=== PATIENT | male | born 1970 | race Caucasian/White ===

== ENCOUNTER 2019-03-18 04:30 | Emergency (ER) | payer OTHER ==
[~2019-03-18] VITALS: Ht 167.6 cm; Wt 109.1 kg
[2019-03-18 05:30] LABS: BASO # 0.1 10^3/uL (0.0-0.2); BASO % 0.7 % (0.0-1.0); EOS # 0.4 10^3/uL (0.0-0.50); EOS % 5.1 % (0.0-3.0); HEMATOCRIT 48.4 % (42.0-52.0); HEMOGLOBIN 16.9 g/dl (13.5-17.5); LYMPH # 2.6 10^3/uL (1.5-4.5); LYMPH % 37.6 % (24.0-44.0); MEAN CORPUSCULAR HEMOGLOBIN 30.6 pg (27.0-33.0); MEAN CORPUSCULAR HGB CONC 34.9 g/dl (32.0-36.5); MEAN CORPUSCULAR VOLUME 87.5 fl (80.0-96.0); MONO # 0.7 10^3/uL (0.0-0.8); MONO % 10.2 % (0.0-5.0); NEUTROPHILS # 3.1 10^3/uL (1.8-7.7); NEUTROPHILS % 45.7 % (36.0-66.0); PLATELET COUNT, AUTOMATED 152 10^3/uL (150-450); RED BLOOD COUNT 5.53 10^6/uL (4.30-6.10); WHITE BLOOD COUNT 6.9 10^3/uL (4.0-10.0)
[2019-03-18] MEDS ORDERED: ONDANSETRON 4MG/2ML VIAL (J2405) As Ordered ONE (05:34)
[2019-03-18] MEDS ORDERED: MORPHINE 4 MG/ML 1ML VIAL/SYRINGE (J2270) As Ordered ONE (05:34)
[2019-03-18] MEDS ORDERED: ONDANSETRON 4MG/2ML VIAL (J2405) IV ONE (05:45)
[2019-03-18] MEDS: MORPHINE 4 MG/ML 1ML VIAL/SYRINGE (J2270) IV PRN ×2 (05:46→06:39)
[2019-03-18 05:54] LABS: ALBUMIN 4.3 GM/DL (3.2-5.2); BILIRUBIN,DIRECT 0.1 MG/DL (0.0-0.2); BILIRUBIN,TOTAL 0.4 MG/DL (0.2-1.0); BLOOD UREA NITROGEN 20 MG/DL (7-18); CALCIUM LEVEL 9.2 MG/DL (8.5-10.1); CARBON DIOXIDE LEVEL 28 MEQ/L (21-32); CHLORIDE LEVEL 106 MEQ/L (98-107); CK-MB VALUE MASS 4.1 NG/ML (<3.6); CPK CREATINE PHOSPHOKINASE 202 U/L (39-308); CREATININE FOR GFR 1.13 MG/DL (0.70-1.30); GLOMERULAR FILTRATION RATE > 60.0 (>60); GLUCOSE, FASTING 116 MG/DL (70-100); MB/CK RELATIVE INDEX 2.03 (< OR =4); POTASSIUM SERUM 4.2 MEQ/L (3.5-5.1); SODIUM LEVEL 141 MEQ/L (136-145); TOTAL PROTEIN 7.8 GM/DL (6.4-8.2); TROPONIN I < 0.02 NG/ML (< 0.10)
[2019-03-18] MEDS ORDERED: KETOROLAC 30 MG/ML VIAL (J1885) IV ONE (07:45)
[2019-03-18 09:55] LABS: CK-MB VALUE MASS 3.6 NG/ML (<3.6); CPK CREATINE PHOSPHOKINASE 189 U/L (39-308); TROPONIN I < 0.02 NG/ML (< 0.10)
[2019-03-18] MEDS ORDERED: PROT1TAB2 PO (10:36)
[2019-03-18 11:03] VITALS: BP 161/95
--- NOTE | 2019-03-18 21:22 | ECGEPIP ---
[facility] - ED Test Date: 2019-03-18 Pat Name: KHUSHBU MANCUSO Department: Room: - Gender: Male [employer]: : 1970 Requested By: JESSICA Velázquez Order Number: [id number] Reading MD: Linh Kerr Measurements Intervals [place] Rate: 64 P: 12 NC: 157 QRS: 42 QRSD: 97 T: 25 QT: 425 QTc: 441 Interpretive Statements PROBABLE SINUS RHYTHM WITH SINUS ARRHYTHMIA baseline artifact may affect interpretation Electronically Signed on 03-18-2019 21:22:57 EDT by Linh Kerr
--- NOTE | 2019-03-18 21:25 | ECGEPIP ---
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
--- NOTE | 2019-03-19 07:52 | REP ---
Abdominal right upper quadrant ultrasound for right upper quadrant and epigastric pain: There are no comparisons. There are multiple small mobile gallbladder calculi along the dependent gallbladder wall. There is no gallbladder wall thickening or pericholecystic fluid. There is no intrahepatic or extrahepatic biliary duct dilatation. The common biliary duct measures 4.3 mm in diameter. There are multiple hepatic cysts. The largest in the right lobe measures up to 2.9 cm and the largest in the left lobe measures up to 3.0 cm. The hepatic parenchyma is otherwise homogeneous. The pancreas is obscured by bowel gas. The right kidney is normal size measuring 16.9 x 6.2 x 4.1 cm. There is a parapelvic right renal upper pole cyst measuring up to 1.5 cm. There is no right upper quadrant ascites. Impression: Cholelithiasis. There is no ultrasound evidence of acute cholecystitis or biliary duct dilatation. Left renal upper pole parapelvic cyst. The pancreas is obscured by bowel gas. Electronically Signed by Crow Aguilar MD 03/18/2019 08:20 A
--- NOTE | 2019-03-20 14:57 | REP ---
Portable chest, 08:15 a.m., single AP view with the patient sitting: Comparison is 06/03/2015. The lung king are clear. The cardiac size is normal. The rima, mediastinum, and skeletal structures are unremarkable. Impression: Negative portable chest. There is no interval change. Electronically Signed by Crow Aguilar MD 03/18/2019 07:29 A
== END 2019-03-18 11:02 | disposition home or self-care (01) ==
LOC: M ED 04:30
DX: R07.89 Other chest pain (principal); K21.9 Gastro-esophageal reflux disease without esophagitis; K80.00 Calculus of gallbladder with acute cholecystitis without obstruction; R00.1 Bradycardia, unspecified; N28.1 Cyst of kidney, acquired
CPT/HCPCS: 36415; 71045; 76705; 80048; 80076; 82150; 82550; 82553; 83605; 83690; 84484; 85025; 93005; 93041; 94760; 96374; 96375; 99285; J1885; J2270; J2405

== ENCOUNTER → 2019-03-29 | Outpatient (REF) | payer OTHER ==
[~2019-03-29] MED LIST: PROT1TAB2 PO
[2019-03-29 14:20] LABS: H PYLORI QUALITATIVE IgG NEGATIVE (NEGATIVE)
== END ==
LOC: M LAB REF 12:50
PROVIDERS: ATTEND Nurse Practitioner Adult Health
DX: R10.13 Epigastric pain (principal)

== ENCOUNTER 2019-05-10 12:27 | Day surgery (SDC) | payer OTHER ==
[~2019-05-10] VITALS: Ht 167.6 cm; Wt 111.6 kg
[~2019-05-10 12:27] MED LIST changes: +NS 1,000 ML IV ONE
[2019-05-10] MEDS ORDERED: fentaNYL 100 MCG/2 ML INJECTION (J3010) As Ordered ONE (13:54)
[2019-05-10] MEDS ORDERED: PROPOFOL 500 MG/50 ML VIAL As Ordered ONE (13:54)
[2019-05-10] MEDS ORDERED: LIDOCAINE 2% INJ 100 MG/5 ML SDV (FOR ANES.) As Ordered ONE (13:54)
--- NOTE | 2019-05-10 14:02 | ROOR ---
Patient Name: Alexandre Parks Procedure Date: 05/10/2019 1:30 PM Date of : 1970 Age: 48 Room: [facility] Gender: Male Note Status: Finalized Procedure: Upper GI endoscopy Indications: Epigastric abdominal pain Providers: Adebayo Parnell Jr, MD Referring MD: MAYTE MIRANDA JR, MD Requesting Provider: Medicines: Propofol per Anesthesia Complications: No immediate complications. Procedure: Pre-Anesthesia Assessment: - Prior to the procedure, a History and Physical was performed, and patient medications and allergies were reviewed. The patient is competent. The risks and benefits of the procedure and the sedation options and risks were discussed with the patient. All questions were answered and informed consent was obtained. Patient identification and proposed procedure were verified by the physician and the nurse in the pre-procedure area and in the procedure room. Mental Status Examination: alert and oriented. Airway Examination: normal oropharyngeal airway and neck mobility. Respiratory Examination: clear to auscultation. CV Examination: normal. ASA Grade Assessment: II - A patient with mild systemic disease. After reviewing the risks and benefits, the patient was deemed in satisfactory condition to undergo the procedure. The anesthesia plan was to use moderate sedation / analgesia (conscious sedation). Immediately prior to administration of medications, the patient was re-assessed for adequacy to receive sedatives. The heart rate, respiratory rate, oxygen saturations, blood pressure, adequacy of pulmonary ventilation, and response to care were monitored throughout the procedure. The physical status of the patient was re-assessed after the procedure. The Endoscope was introduced through the mouth, and advanced to the second part of duodenum. The upper GI endoscopy was accomplished without difficulty. The patient tolerated the procedure well. Findings: The upper third of the esophagus, middle third of the esophagus and lower third of the esophagus were normal. The cardia, gastric fundus, gastric body, gastric antrum, prepyloric region of the stomach and pylorus were normal. Biopsies were taken with a cold forceps for histology. The duodenal bulb, first portion of the duodenum and second portion of the duodenum were normal. Impression: - Normal upper third of esophagus, middle third of esophagus and lower third of esophagus. - Normal cardia, gastric fundus, gastric body, antrum, prepyloric region of the stomach and pylorus. Biopsied. - Normal duodenal bulb, first portion of the duodenum and second portion of the duodenum. Recommendation: - Discharge patient to home (ambulatory). - Return to my office as previously scheduled. Adebayo Parnell MD Adebayo Parnell Jr, MD 05/10/2019 2:01:41 PM Electronically signed by Adebayo Parnell Jr, MD Number of Addenda: 0 Note Initiated On: 05/10/2019 1:30 PM Estimated Blood Loss: Estimated blood loss: none.
[2019-05-10 14:28] VITALS: BP 129/75
== END 2019-05-10 14:30 | disposition home or self-care (01) ==
LOC: M OPP 12:27
PROVIDERS: ATTEND Surgery
DX: R10.13 Epigastric pain (principal); K21.9 Gastro-esophageal reflux disease without esophagitis; Z79.899 Other long term (current) drug therapy
CPT/HCPCS: 43239; 88305; J3010

== ENCOUNTER → 2020-09-25 | Outpatient (CLI) | payer SELFPAY ==
[~2020-09-25] MED LIST changes: -NS 1,000 ML IV ONE
== END ==
LOC: M LABSMTC 12:06
PROVIDERS: ATTEND Pediatrics
DX: Z20.822 Contact with and (suspected) exposure to COVID-19 (principal)

== ENCOUNTER → 2021-07-03 | Outpatient (CLI) | payer OTHER | LOC: M LABSMTC 10:38 | PROVIDERS: ATTEND Anesthesiology | DX: Z01.812 Encounter for preprocedural laboratory examination (principal); Z20.822 Contact with and (suspected) exposure to COVID-19 ==

== ENCOUNTER 2021-07-08 06:41 | Day surgery (SDC) | payer OTHER ==
[~2021-07-08] VITALS: Ht 167.6 cm; Wt 106.6 kg
[~2021-07-08 06:41] MED LIST changes: +NS 1,000 ML IV ONE
--- OUTSIDE RECORDS SUMMARY | 2021-07-08 06:45 | CCD ---
Author Author [facility] Organization [facility] Address Unknown Phone Unavailable Care Team Providers Care Refractory Worker Name Role Phone Anguiano, N Char Unavailable Anguiano, N Char Unavailable Anguiano, N Char Unavailable Anguiano, N Char Unavailable Anguiano, N Char Unavailable Anguaino, N Char Unavailable Anguiano, N Char Unavailable Anguiano, N Char Unavailable Anguiano, N Char Unavailable Anguiano, N Char Unavailable Anguiano, N Char Unavailable Anguiano, N Char Unavailable Anguiano, N Char Unavailable Anguiano, N Char Unavailable Anguiano, N Char Unavailable Anguiano, N Char Unavailable Anguiano, N Char Unavailable Anguiano, N Char Unavailable Anguiano, N Char Unavailable Anguiano, N Char Unavailable Anguiano, N Char Unavailable Anguiano, N Char Unavailable Anguiano, N Char Unavailable Anguiano, N Char Unavailable Anguiano, N Char Unavailable Anguiano, N Char Unavailable Anguiano, N Char Unavailable Anguiano, N Char Unavailable Anguiano, N Char Unavailable Anguiano, N Char Unavailable Anguiano, N Char Unavailable Anguiano, N Char Unavailable Anguiano, N Char Unavailable Anguiano, N Char Unavailable Anguiano, N Char Unavailable Anguiano, N Char Unavailable Anguiano, N Char Unavailable Anguiano, N Char Unavailable Anguiano, N Char Unavailable Anguiano, N Char Unavailable Anguiano, N Char Unavailable Puneet Aranda MD Unavailable Unavailable Rosi, Puneet Vinson MD Unavailable Unavailable Rosi, Puneet Vinson MD Unavailable Unavailable Rosi, Puneet Vinsno MD Unavailable Unavailable Rosi, Puneet Vinson MD Unavailable Unavailable Rosi, Puneet Vinson MD Unavailable Unavailable Rosi, Puneet Vinson MD Unavailable Unavailable Rosi, Puneet Vinson MD Unavailable Unavailable Rosi, Puneet Vinson MD Unavailable Unavailable Rosi, Puneet Vinson MD Unavailable Unavailable Rosi, Puneet Vinson MD Unavailable Unavailable Rosi, Puneet Vinson MD Unavailable Unavailable Rosi, Puneet Vinson MD Unavailable Unavailable Rosi, S Karel MD Unavailable Unavailable RosiPuneet MD Unavailable Unavailable Rosi S Karel DODSON Unavailable Unavailable Rosi S Karel DODSON Unavailable Unavailable Rosi, S Karel DODSON Unavailable Unavailable Rosi S Karel DODSON Unavailable Unavailable Rosi S Karel DODSON Unavailable Unavailable Rosi S Karel DODSON Unavailable Unavailable Rosi, S Karel DODSON Unavailable Unavailable Rosi, S Karel DODSON Unavailable Unavailable Rosi S Karel DODSON Unavailable Unavailable Rosi, S Karel DODSON Unavailable Unavailable Rosi, S Karel DODSON Unavailable Unavailable Rosi, S Karel DODSON Unavailable Unavailable Rosi, S Karel DODSON Unavailable Unavailable Rosi, S Karel DODSON Unavailable Unavailable Rosi, S Karel DODSON Unavailable Unavailable Rosi, S Karel DODSON Unavailable Unavailable Rosi, S Karel DODSON Unavailable Unavailable RosiPuneet MD Unavailable Unavailable Rosi, Puneet Vinson MD Unavailable Unavailable RosiPuneet galan MD Unavailable Unavailable RosiPuneet MD Unavailable Unavailable RosiPuneet MD Unavailable Unavailable RosiPuneet MD Unavailable Unavailable RosiPuneet galan MD Unavailable Unavailable RosiPuneet galan MD Unavailable Unavailable RosiPuneet galan MD Unavailable Unavailable RosiPuneet galan MD Unavailable Unavailable RosiPuneet galan MD Unavailable Unavailable RosiPuneet galan MD Unavailable Unavailable RosiPuneet galan MD Unavailable Unavailable Puneet Aranda MD Unavailable Unavailable Puneet Aranda MD Unavailable Unavailable RosiPuneet galan MD Unavailable Unavailable RosiPuneet galan MD Unavailable Unavailable RosiPuneet galan MD Unavailable Unavailable Puneet Aranda MD Unavailable Unavailable Groat, C Kimberley Unavailable Groat, C Kimberley Unavailable Groat, C Kimberley Unavailable Groat, C Kimberley Unavailable Groat, C Kimberley Unavailable Groat, C Kimberley Unavailable Groat, C Kimberley Unavailable Groat, C Kimberley Unavailable Groat, C Kimberley Unavailable Groat, C Kimberley Unavailable + Groat, Oj Chu Unavailable + Groat, Oj Chu Unavailable + Groat, C Kimberley Unavailable + Groat, Oj Chu Unavailable + Groat, Oj Chu Unavailable + Groat, C Kimberley Unavailable Miriam Bailey MD Unavailable Unavailable LynnMiriam MD Unavailable Unavailable LynnMiriam MD Unavailable Unavailable LynnMiriam MD Unavailable Unavailable LynnMiriam MD Unavailable Unavailable Scotland NeckMiriam MD Unavailable Unavailable Scotland NeckMiriam MD Unavailable Unavailable LynnMiriam MD Unavailable Unavailable [place] NeckMiriam MD Unavailable Unavailable LynnMiriam MD Unavailable Unavailable [place] NeckMiriam MD Unavailable Unavailable LynnMiriam MD Unavailable Unavailable LynnMiraim MD Unavailable Unavailable [place] NeckMiriam MD Unavailable Unavailable LynnMiriam jaramillo MD Unavailable Unavailable [place] NeckMiriam jaramillo MD Unavailable Unavailable [place] NeckMiriam jaramillo MD Unavailable Unavailable [place] NeckMiriam MD Unavailable Unavailable LynnMiriam MD Unavailable Unavailable [place] NeckMiriam MD Unavailable Unavailable LynnMiriam MD Unavailable Unavailable LynnMiriam jaramillo MD Unavailable Unavailable [place] NeckMiriam jaramillo MD Unavailable Unavailable LynnMiriam jaramillo MD Unavailable Unavailable LynnMiriam MD Unavailable Unavailable LynnMiriam jaramillo MD Unavailable Unavailable [place] NeckMiriam MD Unavailable Unavailable LynnMiriam MD Unavailable Unavailable [place] NeckMiriam jaramillo MD Unavailable Unavailable [place] NeckMiriam jaramillo MD Unavailable Unavailable LynnMiriam jaramillo MD Unavailable Unavailable LynnMiriam MD Unavailable Unavailable LynnMiriam MD Unavailable Unavailable LynnMiriam MD Unavailable Unavailable LynnMiriam MD Unavailable Unavailable [place] NeckMiriam MD Unavailable Unavailable [place] NeckMiriam MD Unavailable Unavailable [place] NeckMiriam MD Unavailable Unavailable [place] NeckMiriam MD Unavailable Unavailable LynnMiriam MD Unavailable Unavailable [place] NeckMiriam MD Unavailable Unavailable LynnMiriam MD Unavailable Unavailable [place] NeckMiriam MD Unavailable Unavailable [place] NeckMiriam MD Unavailable Unavailable LynnMiriam MD Unavailable Unavailable LynnMiriam MD Unavailable Unavailable [place] NeckMiriam MD Unavailable Unavailable LynnMiriam MD Unavailable Unavailable LynnMiriam MD Unavailable Unavailable [place] NeckMiriam MD Unavailable Unavailable LynnMiriam MD Unavailable Unavailable [place] NeckMiriam MD Unavailable Unavailable [place] NeckMiriam MD Unavailable Unavailable [place] NeckMiriam MD Unavailable Unavailable LynnMiriam MD Unavailable Unavailable [place] NeckMiriam MD Unavailable Unavailable [place] NeckMiriam MD Unavailable Unavailable [place] NeckMiriam MD Unavailable Unavailable LynnMiriam MD Unavailable Unavailable [place] NeckMiriam MD Unavailable Unavailable LynnMiriam MD Unavailable Unavailable [place] NeckMiriam MD Unavailable Unavailable [place] NeckMiriam MD Unavailable Unavailable LynnMiriam MD Unavailable Unavailable [place] NeckMiriam jaramillo MD Unavailable Unavailable [place] NeckMiriam MD Unavailable Unavailable LynnMiriam MD Unavailable Unavailable LynnMiriam jaramillo MD Unavailable Unavailable LynnMiriam MD Unavailable Unavailable LynnMiriam jaramillo MD Unavailable Unavailable [place] NeckMiriam jaramillo MD Unavailable Unavailable LynnMiriam jaramillo MD Unavailable Unavailable LynnMiriam jaramillo MD Unavailable Unavailable LynnMiriam jaramillo MD Unavailable Unavailable [place] NeckMiriam jaramillo MD Unavailable Unavailable LynnMiraim jaramillo MD Unavailable Unavailable [place] NeckMiriam jaramillo MD Unavailable Unavailable [place] NeckMiriam jaramillo MD Unavailable Unavailable [place] NeckMiriam jaramillo MD Unavailable Unavailable LynnMiriam jaramillo MD Unavailable Unavailable LynnMiriam jaramillo MD Unavailable Unavailable [place] NeckMiriam jaramillo MD Unavailable Unavailable [place] NeckMiriam jaramillo MD Unavailable Unavailable [place] NeckMiriam jaramillo MD Unavailable Unavailable [place] NeckMiriam jaramillo MD Unavailable Unavailable [place] NeckMiriam jaramillo MD Unavailable Unavailable Karlos Shafer MD Unavailable Unavailable Karlos Shafer MD Unavailable Unavailable Karlos Shafer MD Unavailable Unavailable Karlos Shafer MD Unavailable Unavailable Karlos Shafer MD Unavailable Unavailable Karlos Shafer MD Unavailable Unavailable Karlos Shafer MD Unavailable Unavailable Karlos Shafer MD Unavailable Unavailable Karlos Shafer MD Unavailable Unavailable Karlos Shafer MD Unavailable Unavailable Parker StripKarlos MD Unavailable Unavailable SoniKarlos MD Unavailable Unavailable Parker StripKarlos MD Unavailable Unavailable Parker StripKarlos MD Unavailable Unavailable Parker StripKarlos MD Unavailable Unavailable Parker StripKarlos MD Unavailable Unavailable SoniKarlos MD Unavailable Unavailable SoniKarlos MD Unavailable Unavailable SoniKarlos MD Unavailable Unavailable SoniKarlos MD Unavailable Unavailable SoniKarlos MD Unavailable Unavailable SoniKarlos MD Unavailable Unavailable SoniKarlos MD Unavailable Unavailable Parker StripKarlos MD Unavailable Unavailable Parker StripKarlos MD Unavailable Unavailable SoniKarlos MD Unavailable Unavailable SoniKarlos MD Unavailable Unavailable SoniKarlos MD Unavailable Unavailable Parker StripKarlos giron MD Unavailable Unavailable Parker StripKarlos MD Unavailable Unavailable SoniKarlos MD Unavailable Unavailable Parker StripKarlos MD Unavailable Unavailable Parker StripKarlos MD Unavailable Unavailable Parker StripKarlos giron MD Unavailable Unavailable SoniKarlos MD Unavailable Unavailable SoniKarlos MD Unavailable Unavailable Parker StripKarlos MD Unavailable Unavailable SoniKarlos MD Unavailable Unavailable Miriam Bailey MD Unavailable Unavailable Miriam Bailey MD Unavailable Unavailable Miriam Bailey MD Unavailable Unavailable Miriam Bailey MD Unavailable Unavailable Miriam Bailey MD Unavailable Unavailable Miriam Bailey MD Unavailable Unavailable Miriam Bailey MD Unavailable Unavailable Miriam Bailey MD Unavailable Unavailable Miriam Bailey MD Unavailable Unavailable Miriam Bailey MD Unavailable Unavailable Miriam Bailey MD Unavailable Unavailable Miriam Bailey MD Unavailable Unavailable Miriam Bailey MD Unavailable Unavailable Miriam Bailey MD Unavailable Unavailable Miriam Bailey MD Unavailable Unavailable Miriam Bailey MD Unavailable Unavailable Miriam Bailey MD Unavailable Unavailable Miriam Bailey MD Unavailable Unavailable Miriam Bailey MD Unavailable Unavailable Miriam Bailey MD Unavailable Unavailable Miriam Bailey MD Unavailable Unavailable Miriam Bailey MD Unavailable Unavailable Scotland NeckMiriam MD Unavailable Unavailable Scotland NeckMiriam MD Unavailable Unavailable Scotland NeckMiriam MD Unavailable Unavailable LynnMiriam MD Unavailable Unavailable LynnMiriam MD Unavailable Unavailable LynnMiriam MD Unavailable Unavailable LynnMiriam MD Unavailable Unavailable LynnMiriam MD Unavailable Unavailable Scotland NeckMiriam MD Unavailable Unavailable Scotland NeckMiriam MD Unavailable Unavailable Scotland NeckMiriam MD Unavailable Unavailable Scotland NeckMiriam MD Unavailable Unavailable Scotland NeckMiriam MD Unavailable Unavailable Scotland NeckMiriam MD Unavailable Unavailable Scotland NeckMiriam MD Unavailable Unavailable LynnMiriam MD Unavailable Unavailable LynnMiriam MD Unavailable Unavailable Scotland NeckMiriam MD Unavailable Unavailable LynnMiriam MD Unavailable Unavailable LynnMiriam MD Unavailable Unavailable Scotland NeckMiriam MD Unavailable Unavailable LynnMiriam MD Unavailable Unavailable Scotland NeckMiriam MD Unavailable Unavailable Scotland NeckMiriam MD Unavailable Unavailable Scotland NeckMiriam MD Unavailable Unavailable Scotland NeckMiriam MD Unavailable Unavailable Scotland NeckMiriam MD Unavailable Unavailable Scotland NeckMiriam MD Unavailable Unavailable LynnMiriam MD Unavailable Unavailable Scotland NeckMiriam MD Unavailable Unavailable LynnMiriam MD Unavailable Unavailable LynnMiriam MD Unavailable Unavailable LynnMiriam MD Unavailable Unavailable LynnMiriam MD Unavailable Unavailable Scotland NeckMiriam MD Unavailable Unavailable Scotland NeckMiriam MD Unavailable Unavailable Scotland NeckMiriam MD Unavailable Unavailable LynnMiriam MD Unavailable Unavailable Scotland NeckMiriam MD Unavailable Unavailable Scotland NeckMiriam MD Unavailable Unavailable LynnMiriam MD Unavailable Unavailable Scotland NeckMiriam MD Unavailable Unavailable LynnMiriam MD Unavailable Unavailable Scotland NeckMiriam MD Unavailable Unavailable Scotland NeckMiriam MD Unavailable Unavailable [place] NeckMiriam MD Unavailable Unavailable LynnMiriam MD Unavailable Unavailable LynnMiriam MD Unavailable Unavailable Scotland NeckMiriam MD Unavailable Unavailable LynnMiriam MD Unavailable Unavailable LynnMiriam MD Unavailable Unavailable Scotland NeckMiriam MD Unavailable Unavailable LynnMiriam MD Unavailable Unavailable LynnMiriam MD Unavailable Unavailable LynnMiriam MD Unavailable Unavailable LynnMiriam Unavailable Unavailable LynnMiriam MD Unavailable Unavailable Scotland NeckMiriam MD Unavailable Unavailable Scotland NeckMiriam MD Unavailable Unavailable Scotland NeckMriiam MD Unavailable Unavailable Scotland NeckMiriam MD Unavailable Unavailable Scotland NeckMiriam MD Unavailable Unavailable LynnMiriam MD Unavailable Unavailable Scotland NeckMiriam MD Unavailable Unavailable Re-disclosure Warning The records that you are about to access may contain information from federally-assisted alcohol or drug abuse programs. If such information is present, then the following federally mandated warning applies: This information has been disclosed to you from records protected by federal confidentiality rules (42 CFR part 2). The federal rules prohibit you from making any further disclosure of this information unless further disclosure is expressly permitted by the written consent of the person to whom it pertains or as otherwise permitted by 42 CFR part 2. A general authorization for the release of medical or other information is NOT sufficient for this purpose. The Federal rules restrict any use of the information to criminally investigate or prosecute any alcohol or drug abuse patient.The records that you are about to access may contain highly sensitive health information, the redisclosure of which is protected by Article 27-F of the [facility] Public Health law. If you continue you may have access to information: Regarding HIV / AIDS; Provided by facilities licensed or operated by the [facility] Office of Mental Health; or Provided by the [facility] Office for People With Developmental Disabilities. If such information is present, then the following [facility] mandated warning applies: This information has been disclosed to you from confidential records which are protected by state law. State law prohibits you from making any further disclosure of this information without the specific written consent of the person to whom it pertains, or as otherwise permitted by law. Any unauthorized further disclosure in violation of state law may result in a fine or alf sentence or both. A general authorization for the release of medical or other information is NOT sufficient authorization for further disc losure. Family History Family Member Name Family Member Gender Family Member Status Date o f Status Description Data Source(s) Unknown Unknown Problem [facility] ([facility]) Encounters Encounter Providers Location Date Indications Data Source(s ) Outpatient Attender: Karel Aranda MD Main Office 05/12/2021 02:00:00 PM EDT [facility] ([facility]) Outpatient Attender: Venancio Bailey Vandewall 0 03/04/2021 09:00:00 AM EDT [facility] ([facility] ) Outpatient Attender: Kendra Shafer MDReferrer: Venancio ricks MD 12/02/2020 10:06:30 PM EDT [facility] Outpatient Attender: Kendra Shafer MDReferrer: Venancio ricks MD 09/08/2020 12:57:38 PM EST [facility] Outpatient Attender: Kimberley Canasferrer: Venancio Bailey MD 08/08/2020 08:56:28 AM EST [facility] Recurring Patient Referrer: Venancio Bailey MD 08/07/2020 12:50:24 PM EST [facility] Recurring Patient Referrer: Venancio Bailey MD 05/15/2020 07:35:15 AM EDT [facility] Outpatient Attender: Char AnguianoReferrer: Venancio lopez MD 05/09/2020 05:50:42 PM EDT [facility] Medications Medication Brand Name Start Date Product Form Dose Route Admi nistrative Instructions Pharmacy Instructions Status Indications Reaction Description Data Source(s) Sutab Sutab 05/12/2021 12:00:00 AM EDT active [facility] ([facility]) Shingrix Shingrix 03/04/2021 12:00:00 AM EDT activ e [facility] ([facility]) Insurance Providers Payer name Policy type / Coverage type Policy ID Covered alliance party ID Covered alliance party's relationship to hall Policy Hall Plan Information [facility] [place] [id number] SP [id number] [facility] Claims DPT Commercial [id number] Self [id number] [facility] Claims DPT Commercial [id number] Self [id number] [facility] Claims DPT Commercial [id number] Self [id number] [facility] Claims DPT Commercial [id number] Self [id number] [facility] [id number] SELF [id number] [facility] U [id number] Se lf [id number] [facility] [id number] SELF [id number] [employer] [id number] SP [id number] SELF PAY ONLY [id number] SP [id number] [address] [place] [id number] SP [id number] [facility] Commercial [id number] Self [id number] [facility] Commercial [id number] Self [id number] [facility] Commercial [id number] Self [id number] [facility] Commercial [id number] Self [id number] [facility] O [id number] S [id number] Problems, Conditions, and Diagnoses Code Display Name Description Problem Type Effective Dates Data Source(s) 510015189 Screening for malignant neoplasm of colo n Screening for malignant neoplasm of colon Problem 05/12/2021 12:00:00 AM EDT [facility] ([facility]) Surgeries/Procedures Procedure Description Date Indications Data Source(s) OFFICE OUTPATIENT NEW 30 MINUTES 05/12/2021 12:00:00 A M EDT [facility] ([facility]) PERIODIC PREVENTIVE MED EST PATIENT 40-64YRS 12:00:00 AM EDT [facility] ([facility]) Results ID Date Data Source [id number] 03/04/2021 09:38:00 AM EDT [facility] ([facility]) Name Value Range Interpretation Code Description Data Brianna rce(s) Supporting Document(s) Cholesterol [Mass/volume] in Serum or Plasma 197 mg/dL 131-200 [facility] ([facility]) Cholesterol in LDL [Mass/volume] in Serum or Plasma by calcu lation 121 CALC 50-159 [facility] ([facility]) Triglyceride [Mass/volume] in Serum or Plasma 185 mg/dL 30-150 [facility] ([facility]) Cholesterol in HDL [Mass/volume] in Serum or Plasma 39 mg/dL 35-60 [facility] ([facility]) ID Date Data Source [id number] 03/04/2021 09:38:00 AM EDT [facility] ([facility]) Name Value Range Interpretation Code Description Data Brianna rce(s) Supporting Document(s) Glucose [Mass/volume] in Serum or Plasma 94 mg/dL 74-99 [facility] ([facility]) 100-125 mg/dL PRE-DIABETES/FASTING >126 mg/dL DIABETES/FASTING Urea nitrogen [Mass/volume] in Serum or Plasma 13 mg/dL 7-18 [facility] ([facility]) Creatinine 1.0 mg/dL 0.6-1.3 [facility] Sodium [Moles/volume] in Serum or Plasma 142 meq/L 136-145 [facility] ([facility]) Potassium [Moles/volume] in Serum or Plasma 4.4 meq/L 3.5-5.1 [facility] ([facility]) Chloride [Moles/volume] in Serum or Plasma 106 meq/L 98-107 [facility] ([facility]) Carbon dioxide, total [Moles/volume] in Serum or Plasma 27 meq/L 21 -32 [facility] ([facility]) Alkaline phosphatase isoenzyme [Units/volume] in Serum or Pl asma 80 mg/dL 46-116 [facility] ([facility]) Calcium [Mass/volume] in Serum or Plasma 9.2 mg/dL 8.5-10.1 [facility] ([facility]) Total Bilirubin 0.6 mg/dL 0.2-1.0 [facility] ([facility]) Aspartate aminotransferase [Enzymatic activity/volume] in Serum or Plasma 23 U/L 15-37 [facility] Proteinase 3 Ab [Units/volume] in Serum 6.8 g/dL 6.4-8.2 [facility] Albumin [Mass/volume] in Serum or Plasma 4.1 g/dL 3.4-5.0 [facility] Alanine aminotransferase [Enzymatic activity/volume] in Seru m or Plasma 55 U/L 12-78 [facility]) A/G Ratio 1.52 CALC 1.00-1.90 [facility]) Glomerular filtration rate/1.73 sq M pre dicted among non-blacks [Volume Rate/Area] in Serum or Plasma by Creatinine-based formula (MDRD) Laboratory test result [facility] Glomerular filtration rate/1.73 sq M pre dicted among blacks [Volume Rate/Area] in Serum or Plasma by Creatinine-based formula (MDRD) Laboratory test result [facility] ([facility]) <content>CHRONIC KIDNEY DISEASE STAGING PER NKF</content>
<content></content>
<content>STAGE I & II GFR >= 60 NORMAL TO MILDLY DECREASED</content>
<content>STAGE III GFR 30-59 MODERATELY DECREASED</content>
<content>STAGE IV GFR 15-29 SEVERELY DECREASED</content>
<content>STAGE V GFR <15 VERY LITTLE GFR LEFT</content>
<content>ESRD GFR <15 ON POWER SWITCHBOARD OPERATOR</content>
<content></content> ID Date Data Source [id number] 03/04/2021 09:38:00 AM EDT [facility] Name Value Range Interpretation Code Description Data Brianna rce(s) Supporting Document(s) Prostate specific Ag [Mass/volume] in Serum or Plasma 1.17 ng/mL [facility]) This assay was performed on the Siemens Dimension EXL using the B- Galactosidase/CPRG methodology and should not be compared interchangeably with other methods. The PSA should not be used alone as a screening test for the presence or absence of malignant disease. ID Date Data Source [id number] 03/04/2021 09:38:00 AM EDT [facility] ([facility]) Name Value Range Interpretation Code Description Data Brianna rce(s) Supporting Document(s) Erythrocytes [#/volume] in Blood by Automated count 5.33 x10*6/UL 4.2 0-6.30 [facility] ([facility]) Hemoglobin [Mass/volume] in Blood 15.7 g/dL 12.0-18.0 [facility] ([facility]) Leukocytes [#/volume] in Blood by Automated count 5.3 x10*3/UL 4.1-10 .9 [facility] ([facility]) Hematocrit [Volume Fraction] of Blood by Automated count 46.7 % 3 7.0-51.0 [facility] ([facility]) MCV 87.7 fL 80.0-97.0 [facility] ([facility]) MCH 29.5 pg 26.0-32.0 [facility] ([facility]) MCHC 33.6 g/dL 31.0-38.0 [facility] ([facility]) Erythrocyte distribution width [Ratio] by Automated count 13.0 % 11.6-13.7 [facility] ([facility]) Platelets [#/volume] in Blood by Automated count 150 x10*3/UL 140-440 [facility] ([facility]) MPV 9.1 FL 7.8-11.0 [facility] ([facility]) Lymph % 36.1 % 10.0-58.5 [facility] ([facility]) Neut % 56.5 % 37.0-92.0 [facility] ([facility]) Mid % 7.4 % 1.7-9.3 [facility] ([facility]) Mid # 0.4 x10*3/UL 0.1-0.6 [facility] ([facility]) Lymph # 1.9 x10*3/UL 0.6-4.1 [facility] ([facility]) Neut # 3.0 x10*3/UL 2.0-7.8 [facility] ([facility]) ID Date Data Source [id number] 12/02/2020 10:06:30 PM EDT [facility] PCName: Khushbu ParksB: 1970Provider: Nemo ShaferGiselle: 11/28/2020 Reason For VisitDomiquel Parks is here today for Right wrist. Khushbu Parks is an established patient here for follow up and Khushbu Parks is here for first post-op appointment. Other DOI/DOO: 6 Months NKI. Surgery DOS: 08/26/2020 RECTR. 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 History of Present Illness The patient's post-surgical course has been without complication. Rehabilitation is progressing normally. The patient denies increased pain, increased swelling, fever, chills or purulent drainage. He is here for follow-up of a chronic problem with his left hand and wrist. He is status post endoscopic carpal tunnel release. The date of surgery was 11/18/2020. He is doing well. He reports no more numbness or tingling. He did have the right side done previously. AssessmentLeft carpal tunnel syndrome, status post endoscopic carpal tunnel release PlanPlan, Assessment and Recommendation(s) Follow up as needed, if not improving, or getting worse. He is doing well. He has been instructed in scar massage and range of motion exercises. He will do no lifting or weightbearing for 2 weeks. Work / School NoteThe percentage of temporary impairment is 0%. DisclaimersThis document was dictated and electronically signed using [employer] software. A reasonable attempt at proof reading has been made to minimize errors. Please call with any questions. Signatures Electronically signed by : Kendra Shafer NP; Nov 28 2020 2:28PM EST (Author) Electronically signed by : Char Anguiano M.D.; Dec 02 2020 10:06PM EST Name Value Range Interpretation Code Description Data Brianna rce(s) Supporting Document(s) ID Date Data Source [id number] 11/13/2020 03:13:00 PM EDT [facility] Name Value Range Interpretation Code Description Data Brianna rce(s) Supporting Document(s) SARS coronavirus 2 RNA [Presence] in Res piratory specimen by JOSE with probe detection Negative [facility] This lab was ordered by [facility] and reported by [facility]. ID Date Data Source [id number] 09/25/2020 12:00:00 AM EST [facility] Name Value Range Interpretation Code Description Data Brianna rce(s) Supporting Document(s) SARS-CoV-2 (COVID-19) RNA [Presence] in Respiratory specimen by JOSE with probe detection Not Detected [facility] This lab was ordered by [facility] and reported by [facility]. ID Date Data Source [id number] 09/08/2020 12:57:38 PM EST [facility] PCName: Khushbu ParksDOB: 1970Provider: Soni, IngridPuneet: 09/05/2020 Reason For VisitDomiquel Parks is here today for Right wrist. Khushbu Parks is an established patient here for follow up and Khushbu Parks is here for first post-op appointment. Other DOI/DOO: 6 Months NKI. Surgery DOS: 08/26/2020. 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 History of Present IllnessThe patient's post-surgical course has been without complication. Rehabilitation is progressing normally. The patient denies increased pain, increased swelling, fever, chills or purulent drainage. He is here for follow-up of his right hand and wrist. He is status post endoscopic carpal tunnel release. The date of surgery was 08/26/2020. He is doing well. He reports no more numbness or tingling. AssessmentBilateral carpal tunnel syndrome, status post right endoscopic carpal tunnel release PlanPlan, Assessment and Recommendation(s) Follow up as needed, if not improving, or getting worse. He is doing well. He has been instructed in scar massage and range of motion exercises. He will do no lifting or weightbearing for 2 weeks. He does have carpal tunnel syndrome on the left side. He states that it is not bothering him as much as the right was. He is planning on doing the left side, most likely in the spring. He will follow-up with us as needed. Work / School NoteThe percentage of temporary impairment is 0%. DisclaimersThis document was dictated and electronically signed using [employer] software. A reasonable attempt at proof reading has been made to minimize errors. Please call with any questions. Signatures Electronically signed by : Kendra Shafer NP; Sep 05 2020 1:34PM EST (Author) Electronically signed by : Char Anguiano M.D.; Sep 08 2020 12:57PM EST Name Value Range Interpretation Code Description Data Brianna rce(s) Supporting Document(s) ID Date Data Source [id number] 08/21/2020 04:23:00 PM EST [facility] Name Value Range Interpretation Code Description Data Brianna rce(s) Supporting Document(s) SARS coronavirus 2 RNA [Presence] in Res piratory specimen by JOSE with probe detection [facility] This lab was ordered by [facility] and reported by [facility]. ID Date Data Source [id number] 08/08/2020 08:56:28 AM EST [facility] PCName: Khushbu ParksDOB: 1970Provider: Analia Zuluaga: 08/07/2020 Reason For VisitDomiquel Parks is here today for Right wrist. Khushbu Parks is an established patient here for follow up. 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 History of Present IllnessThis is a pleasant 49-year-old male who returns for evaluation of bilateral hand numbness and tingling, more pronounced on the right as compared to the left. He is now considering proceeding with a right endoscopic carpal tunnel release in order to alleviate his symptoms of numbness, tingling and pain. AssessmentSOS Assessment Dragon Form: Bilateral carpal tunnel syndrome PlanThis patient has symptoms from bilateral carpal tunnel syndrome, more pronounced on the right as compared to the left. He is given treatment options. He would like to proceed with a right endoscopic carpal tunnel release in order to alleviate symptoms of numbness, tingling and pain. The nature of the proposed surgical procedure, including risks, benefits and expected postoperative course was reviewed. Risks include but are not limited to: pain, stiffness, infection, bleeding, numbness or weakness and swelling. Alternatives to surgery, including other procedures or no procedures were discussed. The need for additional surgery was discussed. Questions were reviewed. There seems to be a good understanding of the indicated surgical procedure in the office today. 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 Signatures Electronically signed by : Kevin Sanz; Aug 07 2020 2:06PM EST (Author) Electronically signed by : Char Anguiano M.D.; Aug 08 2020 8:56AM EST Name Value Range Interpretation Code Description Data Brianna rce(s) Supporting Document(s) Procedure Social History No Information Vital Signs ID Date Data Source UNK Name Value Range Interpretation Code Description Data Source(s) Body height 66 [in_i] 66 [in_i] [facility] ([facility]) 5'6" Body weight 245.00 [lb_av] 245.00 [lb_av] MEDEN T ([facility]) Systolic blood pressure 130 mm[Hg] 130 mm[Hg] M EDENT ([facility]) Diastolic blood pressure 80 mm[Hg] 80 mm[Hg] [facility] ([facility]) Heart rate 73 /min 73 /min [facility]) Body mass index (BMI) [Ratio] 39.5 kg/m2 39.5 k g/m2 [facility] ([facility]) Body weight 111.132 kg 111.132 kg [facility] ([facility]) Body temperature 97.3 [degF] 97.3 [degF] [facility] ([facility]) Body weight 244.00 [lb_av] 244.00 [lb_av] MEDEN T ([facility]) Body mass index (BMI) [Ratio] 37.1 kg/m2 37.1 k g/m2 [facility] ([facility]) Systolic blood pressure 112 mm[Hg] 112 mm[Hg] M EDENT ([facility]) Diastolic blood pressure 62 mm[Hg] 62 mm[Hg] [facility] ([facility]) Heart rate 58 /min 58 /min [facility] ([facility]) Body height 68 [in_i] 68 [in_i] [facility] ([facility]) 5'8"
--- OUTSIDE RECORDS SUMMARY | 2021-07-08 06:45 | CCD | Continuity of Care Document ---
Author Author Alexandre ARANDA Organization Unknown Address [address] [place] [id number] Phone [phone] Care Team Providers Care Putty Remover Name Role Phone Venancio Bailey M.D. AUTM [phone] Problems Active Problems Provider Date Screening for malignant neoplasm of colon Karel hayward M.D. Onset: 05/12/2021 Social History Type Date Description Comments Sex Unknown ETOH Use Occasionally Tobacco Use Start: Unknown End: Unknown Patient is a former smoker QUIT 1995 Allergies and adverse reactions Description No Known Drug Allergies Medications Active Medications SIG Qnty Indications Ordering Provide r Date Sutab [id number] Tablets as directed 1box Karel Aranda M.D. 05/12/[address] Take One Capsule By Mouth Every Day Venancio Bailey M.D . Immunizations Description No Information Available Vital Signs Date Vital Result Comment 05/12/2021 2:39pm Height 66 inches 5'6" Weight 245.00 lb BP Systolic 130 mmHg BP Diastolic 80 mmHg Heart Rate 73 /min BMI (Body Mass Index) 39.5 kg/m2 Weight 111.132 kg Body Temperature 97.3 F Results Description No Information Available Procedures Date Code Description Status 05/12/2021 28227 Office/Outpatient New Low MDM 30 -44 Minutes Completed Medical Devices Description No Information Available Encounters Type Date Location Provider Dx Diagnosis Office Visit 05/12/2021 2:00p Main Office Karel Aranda M.D. Z 12.11 Encounter for screening for malignant neoplasm of colon Assessments Date Code Description Provider 05/12/2021 Z12.11 Screening for malignant neoplasm of colon Karel S. Rosi,M.D. Plan of Treatment Future Appointment(s):* 07/08/2021 7:30 am - Karel Aranda M.D. at Main Office 05/12/2021 - Karel Aranda M.D.* Z12.11 Screening for malignant neoplasm of colon* Comments:* 50 yo wm who presents for a screening colonoscopy. No c/o abdominal pain, weight loss, change in bowel habits, or rectal bleeding. No family h/o colon cancer. No h/o chest pain, or sob. Plan:1.Schedule patient for a colonoscopy.2.Informed consent given to the patient.3.Pt. advised to stop aspirin,plavix, and anticoagulants at least 3 to 7 days prior to the procedure. Functional Status Description No Information Available Mental Status Description No Information Available Referrals Description No Information Available
[2021-07-08] MEDS ORDERED: propofoL 500 MG/50 ML VIAL As Ordered ONE (07:45)
[2021-07-08] MEDS ORDERED: LIDOCAINE 2% 100MG/5ML SDV (FOR ANES.) As Ordered ONE (07:45)
--- NOTE | 2021-07-08 07:50 | ROOR ---
Patient Name: Alexandre Parks Procedure Date: 07/08/2021 7:25 AM Date of : 1970 Age: 50 Room: [facility] Gender: Male Note Status: Finalized Procedure: Total Colonoscopy to Cecum + Cold Snare Polypectomy + Hemoclips Indications: Screening for colorectal malignant neoplasm Providers: Karel Aranda MD Referring MD: MAYTE MIRANDA JR, MD Requesting Provider: Medicines: Monitored Anesthesia Care Complications: No immediate complications. Procedure: Pre-Anesthesia Assessment: - The heart rate, respiratory rate, oxygen saturations, blood pressure, adequacy of pulmonary ventilation, and response to care were monitored throughout the procedure. The Colonoscope was introduced through the anus and advanced to the cecum, identified by appendiceal orifice and ileocecal valve. The colonoscopy was performed without difficulty. The patient tolerated the procedure well. The quality of the bowel preparation was excellent. Findings: The perianal and digital rectal examinations were normal. Non-bleeding internal hemorrhoids were found during retroflexion. The hemorrhoids were small and Grade I (internal hemorrhoids that do not prolapse). Multiple small and large-mouthed diverticula were found in the recto-sigmoid colon, sigmoid colon and descending colon. A small polyp was found at 35 cm proximal to the anus. The polyp was pedunculated. The polyp was removed with a cold snare. Resection and retrieval were complete. To prevent bleeding after the polypectomy, two hemostatic clips were successfully placed. There was no bleeding at the end of the procedure. The exam was otherwise without abnormality on direct and retroflexion views. Impression: - Non-bleeding internal hemorrhoids. - Diverticulosis in the recto-sigmoid colon, in the sigmoid colon and in the descending colon. - One small polyp at 35 cm proximal to the anus, removed with a cold snare. Resected and retrieved. Clips were placed. - The examination was otherwise normal on direct and retroflexion views. - The exam was otherwise normal to the cecum. Recommendation: - Patient has a contact number available for emergencies. The signs and symptoms of potential delayed complications were discussed with the patient. Return to normal activities tomorrow. Written discharge instructions were provided to the patient. - High fiber diet. - Discharge patient to home. - Continue present medications. - Await pathology results. - Telephone GI clinic for pathology results in 1 week. - Repeat colonoscopy in 5 years for surveillance based on pathology results. - Return to referring physician. - The findings and recommendations were discussed with the patient. Procedure Code(s): --- Professional --- 24865, Colonoscopy, flexible; with removal of tumor(s), polyp(s), or other lesion(s) by snare technique Diagnosis Code(s): --- Professional --- Z12.11, Encounter for screening for malignant neoplasm of colon K64.0, First degree hemorrhoids K63.5, Polyp of colon K57.30, Diverticulosis of large intestine without perforation or abscess without bleeding CPT copyright 2019 [employer]. All rights reserved. The codes documented in this report are preliminary and upon scrap charger review may be revised to meet current compliance requirements. Karel Aranda MD Karel Aranda MD 07/08/2021 7:49:43 AM Electronically signed by Karel Aranda MD Number of Addenda: 0 Note Initiated On: 07/08/2021 7:25 AM Estimated Blood Loss: Estimated blood loss: none.
[2021-07-08 08:10] VITALS: BP 145/96
== END 2021-07-08 08:11 | disposition home or self-care (01) ==
LOC: M OPP 06:41
PROVIDERS: ATTEND Internal Medicine Gastroenterology
DX: D12.6 Benign neoplasm of colon, unspecified (principal); K57.30 Diverticulosis of large intestine without perforation or abscess without bleeding; K64.0 First degree hemorrhoids; Z12.11 Encounter for screening for malignant neoplasm of colon; R12 Heartburn; M54.50 Low back pain, unspecified

== ENCOUNTER → 2022-11-22 | Outpatient (CLI) | payer OTHER ==
[~2022-11-22] MED LIST changes: -NS 1,000 ML IV ONE
== END ==
LOC: CANPRECLI → M SLEEP 20:00
PROVIDERS: ATTEND Nurse Practitioner Family
DX: G47.33 Obstructive sleep apnea (adult) (pediatric) (principal)

== ENCOUNTER 2023-04-24 13:39 | Emergency (ER) | payer OTHER ==
[~2023-04-24] VITALS: Ht 167.6 cm; Wt 110.0 kg
[2023-04-24] MEDS ORDERED: NAPR-849 PO (13:47)
[2023-04-24] MEDS ORDERED: IBUPROFEN 600MG TAB PO ONE (16:20)
[2023-04-24] MEDS ORDERED: IBUP-1022 PO (16:21)
[2023-04-24 16:58] VITALS: BP 154/93; TEMP 98.2; O2SAT 98
== END 2023-04-24 16:45 | disposition home or self-care (01) ==
LOC: M ED 13:39
DX: M23.91 Unspecified internal derangement of right knee (principal); Z79.1 Long term (current) use of non-steroidal anti-inflammatories (NSAID)

== ENCOUNTER → 2023-05-26 | Outpatient (CLI) | payer OTHER ==
[~2023-05-26] MED LIST changes: +IBUP-1022 PO; +NAPR-849 PO
== END ==
LOC: M SLEEP 20:00
PROVIDERS: ATTEND Nurse Practitioner Family
DX: G47.33 Obstructive sleep apnea (adult) (pediatric) (principal)

== ENCOUNTER → 2023-06-07 | Outpatient (CLI) | payer OTHER | LOC: M RAD 07:32 | PROVIDERS: ATTEND Orthopaedic Surgery | DX: M25.561 Pain in right knee (principal); M25.461 Effusion, right knee; S83.231A Complex tear of medial meniscus, current injury, right knee, initial encounter; X58.XXXA Exposure to other specified factors, initial encounter; Y92.9 Unspecified place or not applicable; Y93.9 Activity, unspecified; Y99.9 Unspecified external cause status ==

== ENCOUNTER 2024-11-15 12:39 | Emergency (ER) | payer OTHER ==
[~2024-11-15] VITALS: Ht 167.6 cm; Wt 115.7 kg
[2024-11-15 13:30] LABS: HEMATOCRIT 44.1 % (42.0-52.0); HEMOGLOBIN 15.8 g/dl (13.5-17.5); MEAN CORPUSCULAR HGB CONC 35.8 g/dl (32.0-36.5); MEAN CORPUSCULAR VOLUME 86.6 fl (80.0-96.0); PLATELET COUNT, AUTOMATED 153 10^3/uL (150-450); RED BLOOD COUNT 5.09 10^6/uL (4.30-6.10); WHITE BLOOD COUNT 5.9 10^3/uL (4.0-10.0)
[2024-11-15 14:00] LABS: BLOOD UREA NITROGEN 14 MG/DL (9-23); CALCIUM LEVEL 8.8 MG/DL (8.5-10.1); CARBON DIOXIDE LEVEL 28 MMOL/L (20-31); CHLORIDE LEVEL 103 MMOL/L (98-107); GLOMERULAR FILTRATION RATE > 60.0 (>56); GLUCOSE, FASTING 173 MG/DL (60-100); POTASSIUM SERUM 4.1 MMOL/L (3.5-5.1); SODIUM LEVEL 140 MMOL/L (136-145)
[2024-11-15 14:03] LABS: THYROID STIMULATING HORMONE 2.457 uIU/ML (0.55-4.78)
[2024-11-15] MEDS ORDERED: ISOVUE-370 76% 100ML VIAL As Ordered ONE (14:29)
[2024-11-15] MEDS ORDERED: METO1TAB87 PO (16:33)
[2024-11-15 16:40] VITALS: BP 143/84
[2024-11-15] MEDS: METOPROLOL TART 25 MG TABLET PO ONE (16:40)
[2024-11-15 16:48] VITALS: BP 143/44; TEMP 98.4; O2SAT 100
== END 2024-11-15 16:42 | disposition home or self-care (01) ==
LOC: M ED 12:39
DX: I10 Essential (primary) hypertension (principal); R00.0 Tachycardia, unspecified; K21.9 Gastro-esophageal reflux disease without esophagitis; E78.5 Hyperlipidemia, unspecified; E66.9 Obesity, unspecified; G47.33 Obstructive sleep apnea (adult) (pediatric); K75.81 Nonalcoholic steatohepatitis (NASH); K80.20 Calculus of gallbladder without cholecystitis without obstruction; Z86.0100 Personal history of colon polyps, unspecified
CPT/HCPCS: 71045; 71275; 80048; 83735; 84443; 85027; 93005; 99284; Q9967

== ENCOUNTER → 2025-04-12 | Outpatient (REF) | payer OTHER ==
[~2025-04-12] MED LIST changes: +METO1TAB87 PO
[2025-04-12 13:27] LABS: HEPATITIS C VIRUS ABY INDEX < 0.02 INDEX (<0.8)
== END ==
LOC: M LAB REF 12:02
PROVIDERS: ATTEND Internal Medicine
DX: K76.0 Fatty (change of) liver, not elsewhere classified (principal)